=== PATIENT | male | born 1960 | race Caucasian/White ===

== ENCOUNTER → 2018-06-23 | Outpatient (CLI) | payer OTHER | LOC: COL.VAS 14:41 | DX: R60.0 Localized edema (principal) ==

== ENCOUNTER 2019-10-12 08:30 | Day surgery (SDC) | payer BC ==
[2019-10-12] VITALS (10 sets, daily range): BP systolic 97–168; BP diastolic 69–98; PULSE 53–61; TEMP 98.3–98.5
[~2019-10-12] VITALS: Ht 172.7 cm; Wt 107.0 kg
[2019-10-12] MEDS ORDERED: LIPITOR 40MG TA40 MG PO (08:50)
[2019-10-12] MEDS ORDERED: ASPIRIN E.C. 8181 MG PO (08:50)
[2019-10-12 09:23] LABS: HEMATOCRIT 49.5 % (42.0-52.0); HEMOGLOBIN 16.3 g/dl (13.5-18.0); MEAN CELL VOLUME 87 fl (80.0-100.0); MEAN CORPUSCULAR HEMOGLOBIN 29 pg (27.0-31.0); MEAN CORPUSCULAR HGB CONC 33 g/dl (33.0-37.0); MEAN PLATELET VOLUME 10.6 fl (7.4-10.4); PLATELET COUNT 180 K/mm3 (130-400); RED BLOOD COUNT 5.67 M/mm3 (4.20-5.60); REDCELL DISTRIBUTION WIDTH-CV 12.4 % (11.5-14.5)
[2019-10-12 09:28] LABS: CALCIUM 8.9 mg/dL (8.4-10.2); CREATININE, serum 0.87 (0.66-1.25); POTASSIUM 4.4 mmol/L (3.4-5.0)
[2019-10-12 09:42] LABS: PROTHROMBIN TIME 11.6 SECONDS (9.7-12.8)
--- NOTE | 2019-10-12 11:02 | NUR ---
SEE MERGE FOR MEDICATION ADMINISTRATION TIMES AND INTRA AND POST SEDATION ASSESSMENTS.
--- NOTE | 2019-10-12 12:00 | NUR ---
Pt arrived into room 318 at this time. He is A/O x4, accompanied by his . Site to Left upper chest CDI, gauze in place. LUE in sling. INT to L wrist. Pt currently denies any pain. Ice provided for site. Denies SOB. LUE restrictions discussed with patient as well as POC. No needs at this time. Call light within reach.
--- NOTE | 2019-10-12 20:30 | NUR ---
Pt assessment completed and documented. Pt resting in bed at this time. Pt alert and oriented x4. States he is having 3/10 pain to his left chest near the incision site that is described as "dull/deep". Left chest dressing clean, dry and intact. PRN tylenol given per orders. INT to left wrist patent and without complications. Pt denies any other needs at this time. Call light within reach. Will continue to monitor.
[2019-10-13 00:22] VITALS: BP 135/84; PULSE 61; TEMP 97.7
[2019-10-13 03:23] VITALS: BP 150/84; PULSE 59; TEMP 97.6
--- NOTE | 2019-10-13 05:22 | NUR ---
Pt had uneventful shift. Pt awake most of the night. Pt received PRN tylenol x2 per orders for incision site pain. Stated pain was tolerable when he doesnt move and gets worse with movement. Left arm in sling throughout shift. Gauze dressing to left chest CDI. INT to left wrist without complications. Pt denies any other needs at this time. Call light within reach.
[2019-10-13 05:40] LABS: BASO # 0.1 (0.0-0.2); BASO % 0.7 % (0.0-2.0); EOS # 0.5 (0.0-0.7); EOS % 4.7 % (0-4.0); GRAN # 5.5 (1.4-6.5); GRAN % 57.1 % (42.2-75.2); HEMATOCRIT 50.5 % (42.0-52.0); HEMOGLOBIN 16.7 g/dl (13.5-18.0); LYMPH # 2.7 (1.2-3.4); LYMPH % 27.3 % (20.0-51.0); MEAN CELL VOLUME 87 fl (80.0-100.0); MEAN CORPUSCULAR HEMOGLOBIN 29 pg (27.0-31.0); MEAN CORPUSCULAR HGB CONC 33 g/dl (33.0-37.0); MEAN PLATELET VOLUME 10.8 fl (7.4-10.4); MONO % 9.8 % (1.7-9.3); PLATELET COUNT 176 K/mm3 (130-400); RED BLOOD COUNT 5.81 M/mm3 (4.20-5.60); REDCELL DISTRIBUTION WIDTH-CV 12.5 % (11.5-14.5)
[2019-10-13 05:57] LABS: CALCIUM 8.8 mg/dL (8.4-10.2); CREATININE, serum 0.81 (0.66-1.25); POTASSIUM 4.3 mmol/L (3.4-5.0)
--- NOTE | 2019-10-13 06:45 | NUR ---
Report given to GOLDIE Garcia
[2019-10-13 07:19] VITALS: BP 132/94; PULSE 59; TEMP 97.8
--- NOTE | 2019-10-13 09:30 | NUR ---
Pt assessment complete. Pt is sitting up in bed upon entry, he is A/O x4. His breathing is even and unlabored on RA, pt denies SOB. No pain at this time. Site to L chest CDI. Pt's LUE in sling. POC discussed will continue to monitor.
[2019-10-13 11:37] VITALS: BP 142/80; PULSE 61; TEMP 98.3
--- NOTE | 2019-10-13 11:56 | NUR ---
KARLA met with the patient and the patient's , Rashaad to complete initial intake. The patient lives in [place] with Rashaad. The patient denies DME use and is independent with ADLs. The patient's PCP is Dr. Benson Busch and patient receives medications from [facility] in [place] with no difficulties. The patient does not have advanced directives in the EMR but states they are completed and designate Rashaad. The patient plans to return home at discharge and has no concerns about doing so. There are no additional needs at this time.
[2019-10-13] MEDS ORDERED: TOPROL XL 25MG25 MG PO (12:47)
--- NOTE | 2019-10-13 14:12 | NUR ---
Discharge instructions reviewed with patient, all questions answered at this time. IV to Lwrist dc'd catheter tip intact. Pt wheeled out at this time.
== END 2019-10-13 14:00 | disposition home or self-care (01) ==
LOC: COL.CAR 08:30 → MEDICAL 11:46 → COL.CAR 10-13 14:00
PROVIDERS: Internal Medicine Cardiovascular Disease
DX: I49.5 Sick sinus syndrome (principal); I47.1 Supraventricular tachycardia; E78.2 Mixed hyperlipidemia; Z79.82 Long term (current) use of aspirin; Z87.891 Personal history of nicotine dependence
CPT/HCPCS: OP; J0690; J1200; J2250; J2405; J3010; J7030; Q9967